=== PATIENT | female | born 1995 | race Caucasian/White ===

== ENCOUNTER 2017-09-26 17:44 | Emergency (ER) | payer BC, OTHER ==
--- NOTE | 2017-09-26 18:58 | ER Document Report ---
ED Medical Screen (RME) - General Chief Complaint: Chest Pain Stated Complaint: CHEST PAIN Time Seen by Provider: 09/26/17 18:49 Notes: RAPID MEDICAL EVALUATION DISCLOSURE I have seen this patient as part of a Rapid Medical Evaluation and, if applicable, placed any initially appropriate orders. The patient will be seen and fully evaluated, including a full history and physical exam, by a provider ( in Main ED or Fast Track) when a room becomes available. 22-year-old female here with complaints of sharp/aching midsternal chest pain radiating up to the left neck ongoing for the past few days. The symptoms are worse with exertion but also particularly so with taking a deep breath in. She also feels short of breath but no nausea vomiting numbness tingling. She has no prior history of CAD but has a family history of grandfather who had heart attack at age 32. Denies hypertension hyperlipidemia diabetes cocaine/tobacco abuse. Denies prior history of DVT PE or family history of same. No recent prolonged immobilization estrogen use cancer. EXAM CTAB RRR No chest wall or neck TTP TRAVEL OUTSIDE OF THE [place] IN LAST 30 DAYS: No - Related Data Allergies/Adverse Reactions: No Known Allergies Allergy (Verified 09/26/17 17:45) Past Medical History - Social History Frequency of alcohol use: Occasional Drug Abuse: None Pulmonary Medical History: Denies: Hx Asthma Neurological Medical History: Denies: Hx Cerebrovascular Accident Renal/ Medical History: Denies: Hx Peritoneal Dialysis GI Medical History: Denies: Hx Gastritis, Hx Gastroesophageal Reflux Disease Skin Medical History: Denies Hx Cellulitis, Denies Hx MRSA - Immunizations Immunizations up to date: Yes Hx Diphtheria, Pertussis, Tetanus Vaccination: Yes Physical Exam - Vital signs Vitals: Temp Pulse Resp BP Pulse Ox 99.0 F 80 18 119/65 100 09/26/17 18:19 09/26/17 18:19 09/26/17 18:19 09/26/17 18:19 09/26/17 18:19 Course - Vital Signs Vital signs: Temp Pulse Resp BP Pulse Ox 99.0 F 80 18 119/65 100 09/26/17 18:19 09/26/17 18:19 09/26/17 18:19 09/26/17 18:19 09/26/17 18:19
[2017-09-26 19:19] LABS: ABSOLUTE BASOPHILS # (AUTO) 0.1 10^3/uL (0.0-0.2); ABSOLUTE EOSINOPHILS # (AUTO) 0.2 10^3/uL (0.0-0.6); ABSOLUTE LYMPHOCYTES (AUTO) 3.5 10^3/uL (0.5-4.7); ABSOLUTE MONOCYTES (AUTO) 0.9 10^3/uL (0.1-1.4); ABSOLUTE NEUT (AUTO) 7.4 10^3/uL (1.7-8.2); BASOPHILS % (AUTO) 0.7 % (0-2); EOSINOPHILS % (AUTO) 1.6 % (0-6); HEMATOCRIT 43.3 % (36.0-47.0); HEMOGLOBIN 14.7 g/dL (12.0-15.5); LYMPHOCYTES % (AUTO) 28.9 % (13-45); MEAN CORPUSCULAR HEMOGLOBIN 29.6 pg (27.0-33.4); MEAN CORPUSCULAR HGB CONC 33.9 g/dL (32.0-36.0); MEAN CORPUSCULAR VOLUME 87 fl (80-97); MONOCYTES % (AUTO) 7.5 % (3-13); PLATELET COUNT 340 10^3/uL (150-450); RED BLOOD COUNT 4.96 10^6/uL (3.72-5.28); RED CELL DISTRIBUTION WIDTH 13.9 % (11.5-14.0); SEGMENTED NEUTROPHILS % (AUTO) 61.3 % (42-78); TOTAL CELLS COUNTED % (AUTO) 100 %; WHITE BLOOD COUNT 12.1 10^3/uL (4.0-10.5)
--- NOTE | 2017-09-26 19:22 | RADIOLOGY REPORT (SQ) ---
EXAM DESCRIPTION: CHEST 2 VIEWS COMPLETED DATE/TIME: 09/26/2017 7:11 pm REASON FOR STUDY: CP SOB COMPARISON: None. EXAM PARAMETERS: NUMBER OF VIEWS: two views TECHNIQUE: Digital Frontal and Lateral radiographic views of the chest acquired. RADIATION DOSE: NA LIMITATIONS: none FINDINGS: LUNGS AND PLEURA: No opacities, masses or pneumothorax. No pleural effusion. MEDIASTINUM AND HILAR STRUCTURES: No masses or contour abnormalities. HEART AND VASCULAR STRUCTURES: Heart normal size. No evidence for failure. BONES: No acute findings. HARDWARE: None in the chest. OTHER: No other significant finding. IMPRESSION: NO ACUTE RADIOGRAPHIC FINDING IN THE CHEST. TECHNICAL DOCUMENTATION: JOB ID: [id number] [id number] 2010 [employer]- All Rights Reserved Reading location - IP/workstation name: [email or web address]
[2017-09-26 19:28] LABS: ALANINE AMINOTRANSFERASE 33 U/L (9-52); ALBUMIN 4.6 g/dL (3.5-5.0); ALKALINE PHOSPHATASE 44 U/L (38-126); ANION GAP 12 (5-19); ASPARTATE AMINO TRANSFERASE 25 U/L (14-36); BILIRUBIN,DIRECT 0.2 mg/dL (0.0-0.4); BILIRUBIN,TOTAL 0.5 mg/dL (0.2-1.3); BLOOD UREA NITROGEN 12 mg/dL (7-20); CALCIUM 10.2 mg/dL (8.4-10.2); CARBON DIOXIDE 29 mmol/L (22-30); CHLORIDE 103 mmol/L (98-107); GLUCOSE 92 mg/dL (75-110); POTASSIUM 4.1 mmol/L (3.6-5.0); SODIUM 143.5 mmol/L (137-145); TOTAL PROTEIN 7.9 g/dL (6.3-8.2)
--- NOTE | 2017-09-26 19:32 | EKG REPORT ---
SEVERITY:- NORMAL ECG - SINUS RHYTHM : Confirmed by: Benedict Hernandez MD 26-Sep-2017 19:31:22
--- NOTE | 2017-09-26 20:42 | ER Document Report ---
ED Cardiac - General Chief Complaint: Chest Pain Stated Complaint: CHEST PAIN Time Seen by Provider: 09/26/17 18:49 Mode of Arrival: Ambulatory Information source: Patient Notes: Patient is an otherwise healthy 22-year-old female who presents with chest pain. Patient reports that the pain started Friday night in her left neck/ throat area and describes as a throbbing pain patient reports that over the last 24 hours and has moved to her upper left chest wall. Patient reports that it is worse with movements and feels sharp when she takes a deep breath however patient denies any shortness of breath. Patient reports that the pain is right at the level of the clavicle. Patient denies any history of smoking, denies any use of control pills and denies any recent travel. TRAVEL OUTSIDE OF THE [place] IN LAST 30 DAYS: No - Related Data Allergies/Adverse Reactions: No Known Allergies Allergy (Verified 09/26/17 17:45) Past Medical History - General Information source: Patient - Social History Smoking Status: Former Smoker Frequency of alcohol use: Occasional Drug Abuse: None Family History: Reviewed & Not Pertinent Patient has suicidal ideation: No Patient has homicidal ideation: No - Medical History Medical History: Negative Pulmonary Medical History: Denies: Hx Asthma Neurological Medical History: Denies: Hx Cerebrovascular Accident Renal/ Medical History: Denies: Hx Peritoneal Dialysis GI Medical History: Denies: Hx Gastritis, Hx Gastroesophageal Reflux Disease Skin Medical History: Denies Hx Cellulitis, Denies Hx MRSA Psychiatric Medical History: Reports: None Surgical Hx: Negative - Immunizations Immunizations up to date: Yes Hx Diphtheria, Pertussis, Tetanus Vaccination: Yes Review of Systems - Review of Systems Constitutional: No symptoms reported EENT: No symptoms reported Cardiovascular: See HPI Respiratory: No symptoms reported Gastrointestinal: No symptoms reported Genitourinary: No symptoms reported Female Genitourinary: No symptoms reported Musculoskeletal: See HPI Skin: No symptoms reported Hematologic/Lymphatic: No symptoms reported Neurological/Psychological: No symptoms reported Physical Exam - Vital signs Vitals: Temp Pulse Resp BP Pulse Ox 99.0 F 80 18 119/65 100 09/26/17 18:19 09/26/17 18:19 09/26/17 18:19 09/26/17 18:19 09/26/17 18:19 - Notes Notes: PHYSICAL EXAMINATION: GENERAL: Well-appearing, well-nourished and in no acute distress. HEAD: Atraumatic, normocephalic. EYES: Pupils equal round and reactive to light, extraocular movements intact, conjunctiva are normal. ENT: Nares patent, oropharynx clear without exudates. Moist mucous membranes. NECK: Normal range of motion, supple without lymphadenopathy LUNGS: Breath sounds clear to auscultation bilaterally and equal. No wheezes rales or rhonchi. HEART: Regular rate and rhythm without murmurs ABDOMEN: Soft, nontender, nondistended abdomen. No guarding, no rebound. No masses appreciated. Female : deferred Musculoskeletal: Normal range of motion, no pitting or edema. No cyanosis. NEUROLOGICAL: Cranial nerves grossly intact. Normal speech, normal gait. Normal sensory, motor exams PSYCH: Normal mood, normal affect. SKIN: Warm, Dry, normal turgor, no rashes or lesions noted. Course - Re-evaluation Re-evalutation: Otherwise healthy 22-year-old female with stable vital signs presenting with complaint of chest pain that initially originated in her left neck. Patient was initially seen by triage provider and initial workup was performed. Patient is chest pain free on my examination. Chest x-ray is negative for any acute findings to include aortic dissection. EKG reveals a sinus rhythm with no ST segment elevations or depressions, normal axis. CBC is unremarkable, chemistry is unremarkable. D-dimer is negative. Troponin is negative. Patient has a heart score of 0, patient is PERC negative. Given patient's low likelihood of ACS due to her age will not keep patient for a deltoid troponin. Patient's vital signs remained stable, patient continues to deny any pain or complaints while in the department. Discussed case with Dr. Tillman who agrees that patient can be discharged home safely. Patient can follow-up outpatient with her primary care provider if her pain continues. 09/27/17 06:48 - Vital Signs Vital signs: Temp Pulse Resp BP Pulse Ox 99.0 F 82 16 115/62 98 09/26/17 18:19 09/26/17 21:26 09/26/17 21:26 09/26/17 21:26 09/26/17 21:26 - Laboratory Result Diagrams: 09/26/17 19:00 09/26/17 19:00 Laboratory results interpreted by me: 09/26/17 19:00 WBC 12.1 H Discharge - Discharge Clinical Impression: Chest pain Qualifiers: Chest pain type: unspecified Qualified Code(s): R07.9 - Chest pain, unspecified Condition: Stable Disposition: HOME, SELF-CARE Additional Instructions: Chest Pain of Unclear Cause The exact cause of your chest pain isn't clear. Fortunately, there is no evidence of a dangerous medical condition. Further testing may be required to find the source of the pain. Most often, we find that this pain is coming from the chest wall -- the muscles or rib joints in the chest. But chest pain can come from the lung and lung lining, the esophagus, the heart valves or heart lining, and even the stomach or gallbladder. Rest. Eat lightly until the pain is gone. We may prescribe medicine for pain and inflammation. You should call the physician immediately if the pain radiates to the shoulder, jaw or arms; if you start to run a fever or develop a cough; or if you develop shortness of breath, or other new or alarming symptoms. Take the medication as prescribed. Please follow up with a primary care physician in the next 3-5 days if your symptoms continue. Return to the ER if your chest pain worsens, is accompanied by shortness of breath, nausea, diaphoresis, or any other symptom that is concerning to you. Prescriptions: Naproxen 500 mg PO TID PRN #30 tablet PRN Reason: For Pain [facility] [[facility]] - Follow up as needed
[2017-09-26 21:32] VITALS: BP 115/62
== END 2017-09-26 21:32 | disposition home or self-care (01) ==
LOC: ER 17:44
DX: R07.9 Chest pain, unspecified (principal); M54.2 Cervicalgia; R07.89 Other chest pain; Z87.891 Personal history of nicotine dependence
CPT/HCPCS: 36415; 71046; 80053; 81025; 84484; 84703; 85025; 85379; 93005; 93010; 99285

== ENCOUNTER 2017-09-28 23:24 | Emergency (ER) | payer BC ==
[2017-09-29] MEDS ORDERED: NORMAL SALINE 1000 ML 1,000 ML IV ONE (01:20)
--- NOTE | 2017-09-29 02:38 | RADIOLOGY REPORT (SQ) ---
EXAM DESCRIPTION: US ABDOMEN LIMITED COMPLETED DATE/TME: 09/29/2017 01:20 CLINICAL HISTORY: ruq pain COMPARISON: 12/14/2011 TECHNIQUE: Real-time sonographic images of the right upper abdomen were obtained using a curved multihertz transducer. FINDINGS: Pancreas: The visualized portions of the pancreas are unremarkable. Vascular: The visualized portions of the aorta and IVC are unremarkable. Liver: The liver has normal contour and echogenicity. Hepatopedal flow in the portal vein confirmed with color and spectral Doppler imaging. The common bile duct measures 0.2 cm. Gallbladder: The gallbladder has a normal appearance. No gallstones identified. No wall thickening or pericholecystic fluid. Right Kidney: The right kidney measures 9.4 cm in length. No hydronephrosis, solid renal mass, or shadowing calculi. IMPRESSION: No sonographic abnormality in the right upper abdomen identified.
[2017-09-29 02:59] LABS: ABSOLUTE BASOPHILS # (AUTO) 0.1 10^3/uL (0.0-0.2); ABSOLUTE EOSINOPHILS # (AUTO) 0.2 10^3/uL (0.0-0.6); ABSOLUTE LYMPHOCYTES (AUTO) 3.2 10^3/uL (0.5-4.7); ABSOLUTE MONOCYTES (AUTO) 1.5 10^3/uL (0.1-1.4); ABSOLUTE NEUT (AUTO) 8.7 10^3/uL (1.7-8.2); BASOPHILS % (AUTO) 0.9 % (0-2); EOSINOPHILS % (AUTO) 1.5 % (0-6); HEMATOCRIT 39.2 % (36.0-47.0); HEMOGLOBIN 13.2 g/dL (12.0-15.5); LYMPHOCYTES % (AUTO) 23.3 % (13-45); MEAN CORPUSCULAR HEMOGLOBIN 29.5 pg (27.0-33.4); MEAN CORPUSCULAR HGB CONC 33.5 g/dL (32.0-36.0); MEAN CORPUSCULAR VOLUME 88 fl (80-97); MONOCYTES % (AUTO) 10.7 % (3-13); PLATELET COUNT 287 10^3/uL (150-450); RED BLOOD COUNT 4.46 10^6/uL (3.72-5.28); RED CELL DISTRIBUTION WIDTH 13.6 % (11.5-14.0); SEGMENTED NEUTROPHILS % (AUTO) 63.6 % (42-78); TOTAL CELLS COUNTED % (AUTO) 100 %; WHITE BLOOD COUNT 13.7 10^3/uL (4.0-10.5)
--- NOTE | 2017-09-29 03:33 | RADIOLOGY REPORT (SQ) ---
EXAM DESCRIPTION: CT CHEST ANGIOGRAPHY WITHOUT THEN WITH IV CONTRAST COMPLETED DATE/TME: 09/29/2017 01:19 CLINICAL HISTORY: cp, sharp, sob COMPARISON: None Available. TECHNIQUE: CTA of the chest obtained following the uncomplicated intravenous administration of 69 mL Isovue-370. 3-D/MIP reformatted images of the chest available for evaluation. DLP: 569 mGycm FINDINGS: Chest: Pulmonary arteries: Contrast bolus is adequate.No filling defects identified in the pulmonary arteries to suggest pulmonary embolus. Thyroid:No abnormalities of the visualized thyroid. Great Vessels:Great vessels have normal anatomic configuration. Thoracic Aorta:No abnormalities of the thoracic aorta identified. Heart:No cardiomegaly, significant pericardial effusion, or coronary artery atherosclerosis Lymph Nodes:No enlarged mediastinal lymph nodes identified. Esophagus:No abnormalities of the esophagus identified. Other:No additional findings. Lungs:No alveolar or interstitial airspace opacities identified. Pleura:No pleural effusion or pneumothorax. Trachea/Airways:No abnormalities of the visualized trachea or airways. Bones:No destructive osseous lesions. Upper Abdomen:Limited images of the upper abdomen demonstrate no definite abnormalities of visualized portions of the gallbladder, pancreas, spleen, adrenal glands, or kidneys. Benign-appearing hepatic cysts. IMPRESSION: 1. No pulmonary embolus identified. This exam was performed according to our departmental dose-optimization program, which includes automated exposure control, adjustment of the mA and/or kV according to patient size and/or use of iterative reconstruction technique.
[2017-09-29 03:36] LABS: ALANINE AMINOTRANSFERASE 25 U/L (9-52); ALBUMIN 3.7 g/dL (3.5-5.0); ALKALINE PHOSPHATASE 52 U/L (38-126); ANION GAP 12 (5-19); ASPARTATE AMINO TRANSFERASE 21 U/L (14-36); BILIRUBIN,DIRECT 0.4 mg/dL (0.0-0.4); BILIRUBIN,TOTAL 0.6 mg/dL (0.2-1.3); BLOOD UREA NITROGEN 10 mg/dL (7-20); CALCIUM 9.9 mg/dL (8.4-10.2); CARBON DIOXIDE 26 mmol/L (22-30); CHLORIDE 108 mmol/L (98-107); CREATINE KINASE 69 U/L (30-135); GLUCOSE 85 mg/dL (75-110); LIPASE 70.9 U/L (23-300); POTASSIUM 4.6 mmol/L (3.6-5.0); TOTAL PROTEIN 6.6 g/dL (6.3-8.2)
[2017-09-29] MEDS ORDERED: OXYCODONE-ACETAMINOPHEN 5-325 MG TABLET PO ONE (03:37)
--- NOTE | 2017-09-29 03:38 | ER Document Report ---
ED General - General Chief Complaint: Chest Wall Pain Stated Complaint: CHEST PAIN Time Seen by Provider: 09/29/17 00:58 Mode of Arrival: Ambulatory Information source: Patient Notes: Patient is a 22-year-old female who returns to the emergency department with continued complaints of midsternal chest pain. Patient reports this pain feels sharp and stabbing, patient denies anything that makes the symptoms worse better. Patient denies any other associated symptoms such as nausea, vomiting, diaphoresis or radiation of the pain. Patient denies any cardiac history. In this department approximately 2-3 days ago and had a normal workup to include negative troponin. TRAVEL OUTSIDE OF THE [place] IN LAST 30 DAYS: No - Related Data Allergies/Adverse Reactions: No Known Allergies Allergy (Verified 09/26/17 17:45) Past Medical History - General Information source: Patient - Social History Smoking Status: Never Smoker Chew tobacco use (# tins/day): No Frequency of alcohol use: None Family History: Reviewed & Not Pertinent Patient has suicidal ideation: No Patient has homicidal ideation: No - Medical History Medical History: Negative Pulmonary Medical History: Denies: Hx Asthma Neurological Medical History: Denies: Hx Cerebrovascular Accident Renal/ Medical History: Denies: Hx Peritoneal Dialysis GI Medical History: Denies: Hx Gastritis, Hx Gastroesophageal Reflux Disease Skin Medical History: Denies Hx Cellulitis, Denies Hx MRSA Surgical Hx: Negative - Immunizations Immunizations up to date: Yes Hx Diphtheria, Pertussis, Tetanus Vaccination: Yes Review of Systems - Review of Systems Constitutional: No symptoms reported EENT: No symptoms reported Cardiovascular: See HPI Respiratory: No symptoms reported Gastrointestinal: No symptoms reported Genitourinary: No symptoms reported Female Genitourinary: No symptoms reported Musculoskeletal: No symptoms reported Skin: No symptoms reported Hematologic/Lymphatic: No symptoms reported Neurological/Psychological: No symptoms reported Physical Exam - Vital signs Vitals: Resp Pulse Ox 13 99 09/29/17 02:39 09/29/17 02:39 - Notes Notes: PHYSICAL EXAMINATION: GENERAL: Well-appearing, well-nourished and in no acute distress. HEAD: Atraumatic, normocephalic. EYES: Pupils equal round and reactive to light, extraocular movements intact, conjunctiva are normal. ENT: Nares patent, oropharynx clear without exudates. Moist mucous membranes. NECK: Normal range of motion, supple without lymphadenopathy LUNGS: Breath sounds clear to auscultation bilaterally and equal. No wheezes rales or rhonchi. HEART: Regular rate and rhythm without murmurs ABDOMEN: Soft, nontender, nondistended abdomen. No guarding, no rebound. No masses appreciated. Female : deferred Musculoskeletal: Normal range of motion, no pitting or edema. No cyanosis. NEUROLOGICAL: Cranial nerves grossly intact. Normal speech, normal gait. Normal sensory, motor exams PSYCH: Normal mood, normal affect. SKIN: Warm, Dry, normal turgor, no rashes or lesions noted. Course - Re-evaluation Re-evalutation: Patient is an otherwise healthy 22-year-old female who returns to the emergency department with persistent chest pain despite a normal workup 2 days ago. Patient describes as sharp stabbing midsternal chest pain with mild shortness of breath. Patient has no other associated symptoms. Patient has no medical history. Workup today includes CBC with a mildly elevated white blood count 13.7 with no shift. Troponin, CK, CK-MB are all unremarkable. Comprehensive metabolic panel is unremarkable. Urinalysis is also unremarkable. Right upper quadrant ultrasound is within normal limits, CTA is also unremarkable with no acute processes and with no evidence of any pulmonary embolism. EKG normal sinus rhythm with a rate of 77, normal axis, no ST segment elevations or depressions. Patient has been stable throughout her emergency department stay. Patient does not appear to be in any acute distress on reevaluation. Patient's vital signs have remained stable without tachycardia or hypoxia. Plan is for patient to follow-up with primary care. - Vital Signs Vital signs: Temp Pulse Resp BP Pulse Ox 18 111/63 100 09/29/17 04:01 09/29/17 04:01 09/29/17 04:01 - Laboratory Result Diagrams: 09/29/17 02:36 09/29/17 02:36 Laboratory results interpreted by me: 09/29/17 09/29/17 02:36 02:36 WBC 13.7 H Absolute Neutrophils 8.7 H Absolute Monocytes 1.5 H Sodium 146.0 H Chloride 108 H Discharge - Discharge Clinical Impression: Chest pain, Shortness of breath Condition: Stable Disposition: HOME, SELF-CARE Additional Instructions: Chest Pain of Unclear Cause The exact cause of your chest pain isn't clear. Fortunately, there is no evidence of a dangerous medical condition. Further testing may be required to find the source of the pain. Most often, we find that this pain is coming from the chest wall -- the muscles or rib joints in the chest. But chest pain can come from the lung and lung lining, the esophagus, the heart valves or heart lining, and even the stomach or gallbladder. Rest. Eat lightly until the pain is gone. We may prescribe medicine for pain and inflammation. You should call the physician immediately if the pain radiates to the shoulder, jaw or arms; if you start to run a fever or develop a cough; or if you develop shortness of breath, or other new or alarming symptoms. Your workup today was completely normal. Please take ibuprofen or acetaminophen as needed for pain. I have given you information for a local primary care physician. Please call and make an appointment so that you can follow-up. Please return to the emergency department if your pain worsens, you have associated nausea, vomiting, you pass out or you develop any other symptoms that are concerning to. Referrals: HALLIE GARNER MD [ACTIVE STAFF] - Follow up as needed
[2017-09-29 03:46] LABS: CREATINE KINASE MB 0.25 ng/mL (<4.55)
[2017-09-29 03:47] LABS: TROPONIN I < 0.012 ng/mL
[2017-09-29 04:02] LABS: APPEARANCE,URINE CLEAR; BILIRUBIN,URINE NEGATIVE (NEGATIVE); COLOR,URINE STRAW; GLUCOSE, URINE NEGATIVE (NEGATIVE); KETONES,URINE NEGATIVE (NEGATIVE); LEUKOCYTE ESTERASE,URINE NEGATIVE (NEGATIVE); NITRITE,URINE NEGATIVE (NEGATIVE); PROTEIN,URINE NEGATIVE (NEGATIVE); URINE SPECIFIC GRAVITY 1.045; UROBILINOGEN,URINE NEGATIVE mg/dL (<2.0)
[2017-09-29] MEDS ORDERED: HYDROCODONE/ACETAMINOPHEN 5-325 MG (6 TAB/ER DISP) PO PRN (04:14)
[2017-09-29 04:25] VITALS: BP 111/63
--- NOTE | 2017-09-29 15:36 | EKG REPORT ---
SEVERITY:- NORMAL ECG - SINUS RHYTHM : Confirmed by: Karina Patterson MD 29-Sep-2017 15:35:17
--- NOTE | 2017-09-29 15:36 | EKG REPORT ---
SEVERITY:- NORMAL ECG - SINUS RHYTHM : Confirmed by: Karina Patterson MD 29-Sep-2017 15:35:13
== END 2017-09-29 04:30 | disposition home or self-care (01) ==
LOC: ER 23:24
DX: R06.02 Shortness of breath (principal); R07.9 Chest pain, unspecified
CPT/HCPCS: 93005; 99285; 96360; 36415; 82553; 82550; 83690; 85025; 81025; 80053; 81001; 84484; 76705; 71275; 93010; J7030

== ENCOUNTER 2018-06-20 18:57 | Emergency (ER) | payer BC ==
[2018-06-20] MEDS ORDERED: ACETAMINOPHEN 325 MG TABLET PO ONE (22:00)
--- NOTE | 2018-06-20 22:02 | ER Document Report ---
HPI - HPI Patient complains to provider of: Right shoulder pain Time Seen by Provider: 06/20/18 21:58 Pain Level: 3 Context: Patient is an otherwise healthy 23-year-old female presents to the emergency department for right shoulder pain for the last week. Patient states she is noticed that it has increased over the last 24 hours which is why she presents to the emergency room. Patient is denying any sort of injury that she can recall. Patient has point tenderness on her right acromion process which also increases upon range of motion of her right shoulder. Patient states she did take Tylenol around 1800 hrs. this afternoon. Past medical history: None Medications: None Allergies: None - CONSTITUTIONAL Constitutional: DENIES: Fever, Chills - REPRODUCTIVE Reproductive: DENIES: : - MUSCULOSKELETAL Musculoskeletal: REPORTS: Extremity pain - R shoulder Past Medical History - General Information source: Patient - Social History Smoking Status: Former Smoker Chew tobacco use (# tins/day): No Frequency of alcohol use: Occasional Drug Abuse: None Family History: Reviewed & Not Pertinent Patient has suicidal ideation: No Patient has homicidal ideation: No Pulmonary Medical History: Denies: Hx Asthma Neurological Medical History: Denies: Hx Cerebrovascular Accident Renal/ Medical History: Denies: Hx Peritoneal Dialysis GI Medical History: Denies: Hx Gastritis, Hx Gastroesophageal Reflux Disease Skin Medical History: Denies Hx Cellulitis, Denies Hx MRSA - Immunizations Immunizations up to date: Yes Hx Diphtheria, Pertussis, Tetanus Vaccination: Yes Vertical Provider Document - CONSTITUTIONAL Agree With Documented VS: Yes Notes: GENERAL: Alert, interacts well. No acute distress. HEAD: Normocephalic, atraumatic. EYES: Pupils equal, round, and reactive to light. Extraocular movements intact. ENT: Oral mucosa moist, tongue midline. NECK: Full range of motion. Supple. Trachea midline. LUNGS: Clear to auscultation bilaterally, no wheezes, rales, or rhonchi. No respiratory distress. HEART: Regular rate and rhythm. No murmur ABDOMEN: Soft, non-tender. Non-distended. Bowel sounds present in all 4 quadrants. EXTREMITIES: Moves all 4 extremities spontaneously. No edema, normal radial and dorsalis pedis pulses bilaterally. No cyanosis. Patient has pain upon palpation right acromion process. Patient also has pain with movement of the right shoulder. Patient can abduct and abduct right shoulder, flex and extend right shoulder although does so with grimace on her face and stated pain. 5 out of 5 strength all 4 extremities. BACK: no cervical, thoracic, lumbar midline tenderness. No saddle anesthesia, normal distal neurovascular exam. NEUROLOGICAL: Alert and oriented x3. Normal speech. cranial nerves II through XII grossly intact PSYCH: Normal affect, normal mood. SKIN: Warm, dry, normal turgor. No rashes or lesions noted. - INFECTION CONTROL TRAVEL OUTSIDE OF THE [place] IN LAST 30 DAYS: No Course - Re-evaluation Re-evalutation: 06/20/18 22:28 Patient's x-ray reveals no signs of fractures. Patient continues to deny the pain is radiating anywhere to include her shoulder blade or her chest. Discussed close follow-up with primary care provider and inevitably orthopedics. Patient voices understanding is stable for discharge. - Vital Signs Vital signs: Temp Pulse Resp BP Pulse Ox 98.7 F 83 16 97/80 L 99 06/20/18 19:10 06/20/18 19:10 06/20/18 19:10 06/20/18 19:10 06/20/18 19:10 Discharge - Discharge Clinical Impression: Shoulder pain, right Qualifiers: Chronicity: acute Qualified Code(s): M25.511 - Pain in right shoulder Condition: Stable Disposition: HOME, SELF-CARE Instructions: Shoulder Injury (OM), Exercise Program for the Shoulder ([facility]) Additional Instructions: As we discussed you have been seen and treated in the emergency department for a potential injury to your right shoulder. Your x-rays reveal no signs of fractures at this time. Please follow-up with your primary care provider in the next 24-48 hours. I have also provided you phone numbers for orthopedics. You may need an MRI of your right shoulder to look at your tendons, ligaments, muscles. Please return to the emergency room should you have any other concerni ng symptoms. Please take [id number] Tylenol and Motrin for generalized pain. Forms: Return to Work Referrals: JCARLOS HUNTER PA [Primary Care Provider] - Follow up as needed
--- NOTE | 2018-06-20 22:26 | RADIOLOGY REPORT (SQ) ---
EXAM DESCRIPTION: XR SHOULDER 2 OR MORE VIEWS COMPLETED DATE/TME: 06/20/2018 22:00 CLINICAL HISTORY: 23 years, Female, pain COMPARISON: None. NUMBER OF VIEWS: 3 TECHNIQUE: 3 view right shoulder LIMITATIONS: None. FINDINGS: Negative for fracture or dislocation. Soft tissues are unremarkable. Joint spaces are preserved IMPRESSION: Negative exam copyright 2010 [employer] All Rights Reserved
[2018-06-20 22:44] VITALS: BP 105/64
== END 2018-06-20 22:43 | disposition home or self-care (01) ==
LOC: ER 18:57
DX: M25.511 Pain in right shoulder (principal); Z87.891 Personal history of nicotine dependence
CPT/HCPCS: 99283

== ENCOUNTER 2018-12-05 11:45 | Outpatient (CLI) | payer BC, MEDICAID ==
--- NOTE | 2018-12-05 12:17 | Admission Physical ---
Datetime Report Generated by CPN: 12/05/2018 12:17 CURRENT ADMISSION Chief Complaint: Vaginal Bleeding Chief Complaint Other: Had one episode of bright, red bleeding with wiping [place] the mall today. No further bleeding after that. Indication for Induction: Not Applicable Admit Impression : , Intrauterine ; No Active Labor; Intact Membranes Admit Plan: Discharge Home ALLERGIES Medication Allergies: No Medication Allergies: No Known Allergies (09/26/2017) Latex: No Latex Allergies OBSTETRICAL HISTORY EDC: 04/01/2019 00:00 : 1 Para: 0 Term: 0 : 0 SAB: 0 IAB: 0 [place] PHYSICAL EXAM General: Normal HEENT: Normal Heart: Normal Lungs: Normal Genitourinary Exam: Normal Extremities: Normal Pelvic Type: Adequate Physical Exam Comments: SSE: cx closed, thick white discharge. No blood visible. SVE: FT/th/high, small amt of blood on glove from exam Vital Signs: Reviewed; Within Normal Limits VAGINAL EXAM Dilatation: 0 Effacement: 0 Station: -3 MEMBRANES Membranes: Intact FETUS A EGA: 23.2 Monitoring: External US FHR- Baseline: 150 Decelerations: None INFORMED CONSENT Signature: with User ID: [email or web address]
[2018-12-05 13:10] LABS: APPEARANCE,URINE CLEAR; BILIRUBIN,URINE NEGATIVE (NEGATIVE); COLOR,URINE STRAW; GLUCOSE, URINE NEGATIVE (NEGATIVE); KETONES,URINE NEGATIVE (NEGATIVE); LEUKOCYTE ESTERASE,URINE NEGATIVE (NEGATIVE); NITRITE,URINE NEGATIVE (NEGATIVE); PROTEIN,URINE NEGATIVE (NEGATIVE); URINE SPECIFIC GRAVITY 1.001; UROBILINOGEN,URINE NEGATIVE mg/dL (<2.0)
[2018-12-05 13:24] LABS: URINE AMPHETAMINES SCREEN NEGATIVE; URINE BARBITURATES SCREEN NEGATIVE; URINE BENZODIAZEPINES SCREEN NEGATIVE; URINE COCAINE SCREEN NEGATIVE; URINE MARIJUANA (THC) SCREEN NEGATIVE; URINE METHADONE SCREEN NEGATIVE; URINE PHENCYCLIDINE SCREEN NEGATIVE
== END 2018-12-05 12:41 | disposition home or self-care (01) ==
LOC: LC 11:45
PROVIDERS: ATTEND Obstetrics & Gynecology
PROC: 4A1HXCZ Monitoring of Products of Conception, Cardiac Rate, External Approach (ICD-10-PCS; principal; 2018-12-05)
DX: O46.92 Antepartum hemorrhage, unspecified, second trimester (principal); Z3A.23 23 weeks gestation of pregnancy
CPT/HCPCS: 80307; 81001

== ENCOUNTER 2019-03-25 07:48 | Outpatient (CLI) | payer BC, MEDICAID ==
[2019-03-25] MEDS ORDERED: TERBUTALINE SULFATE INJ/PF 1 MG/1 ML SDV ONE (08:20)
[2019-03-25] MEDS ORDERED: TERBUTALINE SULFATE INJ/PF 1 MG/1 ML SDV SUBCUT ONE (08:30)
[2019-03-25 08:37] LABS: APPEARANCE,URINE CLOUDY; BILIRUBIN,URINE NEGATIVE (NEGATIVE); COLOR,URINE YELLOW; GLUCOSE, URINE NEGATIVE (NEGATIVE); KETONES,URINE NEGATIVE (NEGATIVE); LEUKOCYTE ESTERASE,URINE LARGE (NEGATIVE); NITRITE,URINE NEGATIVE (NEGATIVE); PROTEIN,URINE NEGATIVE (NEGATIVE); UROBILINOGEN,URINE NEGATIVE mg/dL (<2.0)
[2019-03-25 08:38] LABS: ABSOLUTE BASOPHILS # (AUTO) 0.1 10^3/uL (0.0-0.2); ABSOLUTE EOSINOPHILS # (AUTO) 0.1 10^3/uL (0.0-0.6); ABSOLUTE LYMPHOCYTES (AUTO) 2.7 10^3/uL (0.5-4.7); ABSOLUTE MONOCYTES (AUTO) 0.7 10^3/uL (0.1-1.4); ABSOLUTE NEUT (AUTO) 6.1 10^3/uL (1.7-8.2); BASOPHILS % (AUTO) 0.6 % (0-2); EOSINOPHILS % (AUTO) 0.9 % (0-6); HEMATOCRIT 39.2 % (36.0-47.0); HEMOGLOBIN 13.4 g/dL (12.0-15.5); LYMPHOCYTES % (AUTO) 28.3 % (13-45); MEAN CORPUSCULAR HGB CONC 34.3 g/dL (32.0-36.0); MEAN CORPUSCULAR VOLUME 90 fl (80-97); PLATELET COUNT 216 10^3/uL (150-450); RED BLOOD COUNT 4.34 10^6/uL (3.72-5.28); RED CELL DISTRIBUTION WIDTH 13.6 % (11.5-14.0); SEGMENTED NEUTROPHILS % (AUTO) 63.2 % (42-78); TOTAL CELLS COUNTED % (AUTO) 100 %; WHITE BLOOD COUNT 9.6 10^3/uL (4.0-10.5)
[2019-03-25 08:55] LABS: URINE AMPHETAMINES SCREEN NEGATIVE; URINE BARBITURATES SCREEN NEGATIVE; URINE BENZODIAZEPINES SCREEN NEGATIVE; URINE COCAINE SCREEN NEGATIVE; URINE MARIJUANA (THC) SCREEN NEGATIVE; URINE METHADONE SCREEN NEGATIVE; URINE PHENCYCLIDINE SCREEN NEGATIVE
--- NOTE | 2019-03-25 09:35 | Non Stress Test Report ---
Non Stress Test Datetime Report Generated by CPN: 03/25/2019 09:35 DEMOGRAPHIC EGA NST: 38.0 INDICATION Indication for Study (NST) Other: version VITAL SIGNS Temperature - NST: 98.1 Pulse - NST: 96 RESP - NST: 20 NBPSYS NST: 121 NBPDIA NST: 72 MONITORING Time on Monitor: 03/25/2019 08:00 Time off Monitor: 03/25/2019 09:33 NST Duration: 93 NST INTERVENTIONS NST Interventions: None BABY A: [id number] BABY A Movement : Present Contraction Frequency : occ FHR Baseline : 140 Accelerations : 15X15 Decelerations : None Variability : Moderate 6-25bpm NST Review: Meets Criteria for Reactive NST NST Review and Verified By : Sloan RNC NST Results: Reactive NST REPORT Report Trigger: Send Report
== END 2019-03-25 09:54 | disposition home or self-care (01) ==
LOC: LC 07:48
PROVIDERS: ATTEND Obstetrics & Gynecology
PROC: 4A1HXCZ Monitoring of Products of Conception, Cardiac Rate, External Approach (ICD-10-PCS; principal; 2019-03-25)
DX: Z34.93 Encounter for supervision of normal pregnancy, unspecified, third trimester (principal); Z3A.38 38 weeks gestation of pregnancy
CPT/HCPCS: 59025; 86900; 86901; 36415; 86850; 85025; 81005; 80307; J3105

== ENCOUNTER 2019-04-07 16:32 | Inpatient (IN) | payer BC, MEDICAID ==
[2019-04-07 18:16] LABS: APPEARANCE,URINE CLOUDY; BILIRUBIN,URINE NEGATIVE (NEGATIVE); COLOR,URINE YELLOW; GLUCOSE, URINE NEGATIVE (NEGATIVE); KETONES,URINE NEGATIVE (NEGATIVE); LEUKOCYTE ESTERASE,URINE SMALL (NEGATIVE); NITRITE,URINE NEGATIVE (NEGATIVE); PROTEIN,URINE 30 mg/dL (NEGATIVE); URINE SPECIFIC GRAVITY 1.018; UROBILINOGEN,URINE NEGATIVE mg/dL (<2.0)
[2019-04-07 18:32] LABS: URINE AMPHETAMINES SCREEN NEGATIVE; URINE BARBITURATES SCREEN NEGATIVE; URINE BENZODIAZEPINES SCREEN NEGATIVE; URINE COCAINE SCREEN NEGATIVE; URINE MARIJUANA (THC) SCREEN NEGATIVE; URINE METHADONE SCREEN NEGATIVE; URINE PHENCYCLIDINE SCREEN NEGATIVE
[2019-04-07] MEDS ORDERED: RINGERS SOLUTION,LACTATED 1,000 ML IV PRN (19:48)
[2019-04-07 20:05] LABS: HEMATOCRIT 40.9 % (36.0-47.0); HEMOGLOBIN 13.9 g/dL (12.0-15.5); MEAN CORPUSCULAR HGB CONC 33.9 g/dL (32.0-36.0); MEAN CORPUSCULAR VOLUME 92 fl (80-97); PLATELET COUNT 234 10^3/uL (150-450); RED BLOOD COUNT 4.47 10^6/uL (3.72-5.28); RED CELL DISTRIBUTION WIDTH 13.5 % (11.5-14.0); WHITE BLOOD COUNT 12.9 10^3/uL (4.0-10.5)
[2019-04-07 20:25] LABS: ABSOLUTE LYMPHOCYTES# (MANUAL) 4.3 10^3/uL (0.5-4.7); ABSOLUTE MONOCYTES # (MANUAL) 1.2 10^3/uL (0.1-1.4); BASOPHILS % (MANUAL) 0 % (0-2); EOSINOPHILS % (MANUAL) 0 % (0-6); LYMPHOCYTES % (MANUAL) 33 % (13-45); MONOCYTES % (MANUAL) 9 % (3-13); PLATELET COMMENT ADEQUATE; RBC MORPHOLOGY COMMENT NORMO-CYTIC/CHROMIC; SEGMENTED NEUTROPHILS % (MAN) 58 % (42-78); TOTAL CELLS COUNTED 100
--- NOTE | 2019-04-07 20:43 | Admission Physical ---
Datetime Report Generated by CPN: 04/07/2019 20:43 CURRENT ADMISSION Chief Complaint: Uterine Contractions Chief Complaint Other: Had one episode of bright, red bleeding with [place] the mall [place]. No further bleeding after that. Indication for Induction: Not Applicable Admit Impression : Term, Intrauterine ; Active Labor; Intact Membranes Admit Plan: Admit to Unit; Initiate Labor Protocol ALLERGIES Medication Allergies: No Medication Allergies: No Known Allergies (12/05/2018) Latex: No Latex Allergies OBSTETRICAL HISTORY EDC: 04/08/2019 00:00 : 1 Para: 0 Term: 0 : 0 SAB: 0 IAB: 0 Livin SEE RECORDS Alcohol: No PHYSICAL EXAM General: Normal HEENT: Normal Neurologic: Normal Thyroid: Deferred Heart: Normal Lungs: Normal Breast: Deferred Back: Normal Abdomen: Normal Genitourinary Exam: Normal Extremities: Normal DTRs: Normal Pelvic Type: Adequate Physical Exam Comments: SSE: cx closed, thick white discharge. No blood visible. SVE: FT/th/high, small amt of blood on glove from exam Vital Signs: Reviewed VAGINAL EXAM Dilatation: 5 Effacement: 70 Station: -1 Contraction Comments: q 2-3 MEMBRANES Membranes: Intact FETUS A EGA: 39.6 Monitoring: External US FHR- Baseline: 125 Variability: Moderate 6-25bpm Accelerations: 15X15 Decelerations: None FHR Category: Category I Presentation: Vertex Admit Comment: 24yo at 39+6ega presents for active labor with regular uterine contractions. Ctx began at 1400. GBS negative. ECV done on 03/25 - successful. Vertex again on exam by bedside US today. AROM at 6, thin meconium. Considering epidural. Admit for augmentation if needed. Anticipate INFORMED CONSENT Informed Consent Obtained: Vaginal Delivery; Risks, Benefits and Alternatives Discussed Signature: with User ID: [email or web address]
[2019-04-07] MEDS ORDERED: RINGERS SOLUTION,LACTATED 1,000 ML IV ONE (20:45)
[2019-04-07] MEDS ORDERED: MISOPROSTOL 0.2 MG TABLET ONE (21:24)
[2019-04-07] MEDS ORDERED: OXYTOCIN 10 UNIT/ML VIAL ONE (21:24)
[2019-04-07] MEDS ORDERED: LIDOCAINE 1% INJ-PF (10 MG/ML) 30 ML SDV ONE (21:24)
[2019-04-07] MEDS ORDERED: OXYTOCIN/NORMAL SALINE 20 UNIT/1,000 ML RTUINJ ONE (21:24)
[2019-04-07] MEDS ORDERED: MAG HYDROX/AL HYDROX/SIMETH SUSP 30 ML UDCUP PO ONE (21:27)
[2019-04-07] MEDS ORDERED: MAG HYDROX/AL HYDROX/SIMETH SUSP 30 ML UDCUP ONE (21:29)
[2019-04-07] MEDS ORDERED: OXYTOCIN/NORMAL SALINE 20 UNIT/1,000 ML RTUINJ IV PRN (23:33)
[2019-04-08] MEDS ORDERED: NALBUPHINE HCL INJ 10 MG/1 ML AMPULE ONE (00:36)
[2019-04-08] MEDS ORDERED: NALBUPHINE HCL INJ 10 MG/1 ML AMPULE INJ ONE (00:36)
[2019-04-08] MEDS ORDERED: ACETAMINOPHEN 325 MG TABLET PO PRN (03:18)
[2019-04-08] MEDS ORDERED: MAGNESIUM HYDROXIDE SUSP 30 ML UDCUP PO PRN (03:18)
[2019-04-08] MEDS ORDERED: ZOLPIDEM TARTRATE 5 MG TABLET PO PRN (03:18)
[2019-04-08] MEDS ORDERED: PROMETHAZINE HCL 25 MG SUPP.RECT PR PRN (03:18)
[2019-04-08] MEDS ORDERED: MISOPROSTOL 0.2 MG TABLET PR ONE (03:18)
[2019-04-08] MEDS ORDERED: OXYTOCIN/NORMAL SALINE 20 UNIT/1,000 ML RTUINJ IV PRN (03:18)
[2019-04-08] MEDS ORDERED: DIPHENHYDRAMINE HCL 25 MG CAPSULE PO PRN (03:18)
[2019-04-08] MEDS ORDERED: PROMETHAZINE HCL 25 MG TABLET PO PRN (03:18)
[2019-04-08] MEDS ORDERED: PROMETHAZINE HCL INJ 25 MG/1 ML VIAL IV PRN (03:18)
[2019-04-08] MEDS ORDERED: DIPH/PERTUSS(ACELL)/TETANUS VAC/PF 0.5 ML SYR (>=10YO) IM PRN (03:18)
[2019-04-08] MEDS ORDERED: MEASLES,MUMPS&RUBELLA VACC/PF 0.5 ML VIAL SUBCUT PRN (03:18)
[2019-04-08] MEDS ORDERED: DIBUCAINE 1% OINTMENT 28 GM TP PRN (03:18)
[2019-04-08] MEDS ORDERED: ACETAMINOPHEN WITH CODEINE #3 TABLET PO PRN ×2 (03:18)
[2019-04-08] MEDS ORDERED: BENZOCAINE/MENTHOL AEROSOL SPRAY 56 ML TOP PRN (03:18)
[2019-04-08] MEDS ORDERED: GLYCERIN/WITCH HAZEL LEAF 1 EACH MED..WIPE TP PRN (03:18)
[2019-04-08] MEDS ORDERED: NA PHOS,M-B/NA PHOS,DI-BA (ADULT) 133 ML ENEMA PR PRN (03:18)
[2019-04-08] MEDS ORDERED: PSEUDOEPHEDRINE HCL 30 MG TABLET PO PRN (03:18)
--- NOTE | 2019-04-08 04:37 | Delivery Summary ---
Del Sum A-C Datetime Report Generated by CPN: 04/08/2019 04:36 DELIVERY PERSONNEL DELIVERY PERSONNEL: [id number] Delivery Doctor:: Yusra Valderrama MD Labor and Delivery Nurse:: Chris Inman RNarmy officer Nurse:: Layla Abraham RN Nursery Nurse:: Sandhya Nguyen RN MSN Office Electrician/METAL RIVETING MACHINE OPERATOR: Shereen Chino, [employer]NAL INFORMATION Delivery Anesthesia: None Medications After Delivery: Pitocin Drip 20 Units/1000ml NSS; Cytotec 1000mcg Per Rectum/Vagina Estimated Blood Loss (ml): 100 Delivery QBL: 100 Delivery QBL Comment: 100 Maternal Complications: None Provider Comments: VMI delivered in STONE presentation with nuchal cord reduced at the perineum. Shoulders and body delivered without difficulty. Cord doubly clamped and cut and to maternal abd. Placental delivered intact spontaneously. FF at U. 1st degree perineal laceration repaired in usual fashion. Good hemostasis. Mother and baby stable upon provider leaving the room LABOR SUMMARY EDC: 04/08/2019 00:00 No. Babies in Womb: 1 Attempted: No Labor Anesthesia: IV Sedation LABOR INFORMATION Reason for Induction: Not Applicable Onset of Labor: 04/08/2019 00:28 Complete Dilatation: 04/08/2019 02:11 Cervical Ripening Agents: Cytotec @ 1000 Oxytocin: Augmentation Group B Beta Strep: neg Antibiotics # of Doses: N/A Antibiotics Time of Last Dose: N/A Name of Antibiotic Given: N/A Steroids Given: None Reason Steroids Not Administered: Not Applicable MEMBRANES Membranes Rupture Method: Artificial Rupture of Membranes: 04/07/2019 20:37 Length of Rupture (hr): 6.35 Amniotic Fluid Color: Light Meconium Amniotic Fluid Amount: Small Amniotic Fluid Odor: Normal STAGES OF LABOR Stage 1 hr: 1 Stage 1 min: 43 Stage 2 hr: 0 Stage 2 min: 47 Stage 3 hr: 0 Stage 3 min: 4 Total Time in Labor hr: 2 Total Time in Labor min: 34 VAGINAL DELIVERY Episiotomy: None Laceration #1: Perineal Laceration Extension #1: First Degree Laceration Repair: Yes Laceration Repair Note: 1st degree perineal laceration repaired in usual fashion Sponge Count Correct: Yes Sharps Count Correct: Yes CSECTION DELIVERY Primary Indication: N/A Secondary Indication: N/A CSection Incidence: N/A Labor: N/A Elective: N/A BABY A INFORMATION Infant Delivery Date/Time: 04/08/2019 02:58 Method of Delivery: Vaginal Born in Route : No : N/A Forceps: N/A Vacuum Extraction: N/A Shoulder Dystocia : No PRESENTATION/POSITION BABY A Presentation: Cephalic Cephalic Presentation: Vertex Vertex Position: Left Occipital Anterior Breech Presentation: N/A PLACENTA INFORMATION BABY A Placenta Delivery Time : 04/08/2019 03:02 Placenta Method of Delivery: Spontaneous Placenta Status: Delivered SCORES BABY A Heart Rate 1 min: >100 bpm Resp Effort 1 min: Good Cry Reflex Irritability 1 min: Cough or Sneeze or Pulls Away Muscle Tone 1 min: Active Motion Color 1 min: Blue/Pale Resuscitation Effort 1 min: Tactile Stimulation SCORE 1 MIN: 8 Heart Rate 5 min: >100 bpm Resp Effort 5 min: Good Cry Reflex Irritability 5 min: Cough or Sneeze or Pulls Away Muscle Tone 5 min: Active Motion Color 5 min: Body [place], Extremities Blue Resuscitation Effort 5 min: Tactile Stimulation SCORE 5 MIN: 9 INFANT INFORMATION BABY A Gestational Age at Delivery: 40.0 Gestational Status: Full Term- 39- 40.6 Weeks Infant Outcome : Liveborn Condition : Stable Sex: Male IDENTIFICATION BABY A Verification Date/Time: 04/08/2019 03:07 ID Band Number: [id number] Mother's Name Verified: Yes RN Verifying : E. Raulitolek RN/ C. Abraham RN WEIGHT/LENGTH BABY A Infant Birthweight (gm): 3700 Infant Weight (lb): 8 Infant Weight (oz): 3 Length (in): 21.00 Infant Length (cm): 53.34 CORD INFORMATION BABY A No. Cord Vessels: 3 Nuchal Cord : Around Neck x1, Loose Cord Blood Taken: Yes-For Eval (Mom's Blood Type - or O+) Infant Suction: Mouth ASSESSMENT BABY A Skin to Skin: Yes Skin to Skin Time (min): 60 BABY B INFORMATION : N/A SIGNATURES Signature: with User ID: [email or web address] : I was personally available for consultation and serving as supervising physician for the MLP.
--- NOTE | 2019-04-08 04:37 | Warning Signs in Babies ---
VOD Warning Signs Datetime Report Generated by [facility]: 04/08/2019 04:36 VOD#608 -Warning Signs in Babies: Viewed with Parent(s)/Family (12/05/2018 11:52:Chris Inman RN)
[2019-04-08] MEDS ORDERED: IBUPROFEN 800 MG TABLET ONE (05:28)
[2019-04-08] MEDS ORDERED: FAMOTIDINE 20 MG TABLET ONE (05:28)
[2019-04-08] MEDS: IBUPROFEN 800 MG TABLET PO SCH ×3 (05:31→21:11)
[2019-04-08] MEDS: FERROUS SULFATE 325 MG TABLET PO SCH ×2 (10:47→17:29)
[2019-04-08] MEDS: FAMOTIDINE 20 MG TABLET PO SCH ×2 (10:47→21:11)
[2019-04-08] MEDS: DOCUSATE SODIUM 100 MG CAPSULE PO SCH ×2 (10:47→17:29)
[2019-04-08] MEDS: SENNOSIDES/DOCUSATE 8.6-50 MG 1 EACH TABLET PO SCH (10:47)
[2019-04-08] MEDS: PRENATAL VITAMIN W DHA CAPSULE PO SCH (10:47)
--- NOTE | 2019-04-08 13:50 | PDOC PROGRESS REPORT ---
Subjective-OB Progress Note for:: 04/08/19 Subjective: reports bleeding slowing, pain controlled with current meds. denies needs Physical Exam (OB) Vital Signs: Temp Pulse Resp BP Pulse Ox 98.5 F 85 18 116/62 99 04/08/19 07:47 04/08/19 07:47 04/08/19 07:47 04/08/19 07:47 04/08/19 07:47 Intake & Output 04/07/19 04/08/19 04/09/19 06:59 06:59 06:59 Weight 90.7 kg - Abdomen Description: Soft, Round Hernia Present: No Fundal Description: Firm, Midline Fundal Height: u/u - u/2 - Abdominal Distension: No distension Tenderness: Nontender - Extremities Lower extremities: Juan Luis's sign - neg Calf: Normal, Nontender Objective-Diagnostic Laboratory: 04/07/19 19:20 04/07/19 04/07/19 04/07/19 16:35 19:20 19:20 WBC 12.9 H RBC 4.47 Hgb 13.9 Hct 40.9 MCV 92 MCH 31.0 MCHC 33.9 RDW 13.5 Plt Count 234 Seg Neutrophils % Not Reportable Urine Color YELLOW Urine Appearance CLOUDY Urine pH 7.0 Ur Specific [place] 1.018 Urine Protein 30 H Urine Glucose (UA) NEGATIVE Urine Ketones NEGATIVE Urine Blood NEGATIVE Urine Nitrite NEGATIVE Ur Leukocyte Esterase SMALL H Blood Type O POSITIVE Antibody Screen NEGATIVE Assessment and Plan(PN) - Assessment and Plan (1) Active labor at term Is this a current diagnosis for this admission?: Yes (2) Obstetrical laceration, first degree Is this a current diagnosis for this admission?: Yes (3) Vaginal delivery Is this a current diagnosis for this admission?: Yes - Time Spent with Patient Time with patient: Less than 15 minutes Medications reviewed and adjusted accordingly: Yes - Disposition Anticipated Discharge: Home Within: within 24 hours
[2019-04-09] MEDS: IBUPROFEN 800 MG TABLET PO SCH (06:00)
[2019-04-09 08:12] LABS: HEMATOCRIT 36.1 % (36.0-47.0); HEMOGLOBIN 12.3 g/dL (12.0-15.5); MEAN CORPUSCULAR HEMOGLOBIN 31.2 pg (27.0-33.4); MEAN CORPUSCULAR VOLUME 92 fl (80-97); PLATELET COUNT 184 10^3/uL (150-450); RED BLOOD COUNT 3.93 10^6/uL (3.72-5.28); RED CELL DISTRIBUTION WIDTH 13.6 % (11.5-14.0); WHITE BLOOD COUNT 12.4 10^3/uL (4.0-10.5)
[2019-04-09] MEDS: FERROUS SULFATE 325 MG TABLET PO SCH (09:08)
[2019-04-09] MEDS: PRENATAL VITAMIN W DHA CAPSULE PO SCH (09:08)
[2019-04-09] MEDS: DOCUSATE SODIUM 100 MG CAPSULE PO SCH (09:08)
[2019-04-09] MEDS: FAMOTIDINE 20 MG TABLET PO SCH (09:08)
[2019-04-09] MEDS: SENNOSIDES/DOCUSATE 8.6-50 MG 1 EACH TABLET PO SCH (09:09)
--- NOTE | 2019-04-09 10:46 | PDOC DISCHARGE SUMMARY ---
Impression - Admit/DC Date/PCP Admission Date/Primary Care Provider: 04/07/19 19:28 KYLER STUBBS MD Discharge Date: 04/09/19 - Discharge Diagnosis (1) Active labor at term Is this a current diagnosis for this admission?: Yes (2) Obstetrical laceration, first degree Is this a current diagnosis for this admission?: Yes (3) Vaginal delivery Is this a current diagnosis for this admission?: Yes - Additional Information Resuscitation Status: Full Code Discharge Diet: Regular Discharge Activity: Balance Activity w/Rest, Pelvic Rest Referrals: KYLER STUBBS MD [Primary Care Provider] - (Follow up in 4 weeks for you post evaluation. Call the office and make an appt. ) Prescriptions: Ibuprofen [Motrin 800 mg Tablet] 800 mg PO Q8HP PRN #60 tablet PRN Reason: Home Medications: Vitamin [-U Multiple Vitamin Capsule] 1 tab PO DAILY 12/05/18 Ibuprofen [Motrin 800 mg Tablet] 800 mg PO Q8HP PRN #60 tablet 04/09/19 Results Laboratory Results: WBC 12.4 10^3/uL (4.0-10.5) H 04/09/19 07:46 RBC 3.93 10^6/uL (3.72-5.28) 04/09/19 07:46 Hgb 12.3 g/dL (12.0-15.5) 04/09/19 07:46 Hct 36.1 % (36.0-47.0) 04/09/19 07:46 MCV 92 fl (80-97) 04/09/19 07:46 MCH 31.2 pg (27.0-33.4) 04/09/19 07:46 MCHC 34.0 g/dL (32.0-36.0) 04/09/19 07:46 RDW 13.6 % (11.5-14.0) 04/09/19 07:46 Plt Count 184 10^3/uL (150-450) 04/09/19 07:46 Lymph % (Auto) Not Reportable 04/07/19 19:20 [place] % (Auto) Not Reportable 04/07/19 19:20 Eos % (Auto) Not Reportable 04/07/19 19:20 Baso % (Auto) Not Reportable 04/07/19 19:20 Absolute Neuts (auto) Not Reportable 04/07/19 19:20 Absolute Lymphs (auto) Not Reportable 04/07/19 19:20 Absolute Monos (auto) Not Reportable 04/07/19 19:20 Absolute Eos (auto) Not Reportable 04/07/19 19:20 Absolute Basos (auto) Not Reportable 04/07/19 19:20 Total Counted 100 04/07/19 19:20 Seg Neutrophils % Not Reportable 04/07/19 19:20 Seg Neuts % (Manual) 58 % (42-78) 04/07/19 19:20 Lymphocytes % (Manual) 33 % (13-45) 04/07/19 19:20 Monocytes % (Manual) 9 % (3-13) 04/07/19 19:20 Eosinophils % (Manual) 0 % (0-6) 04/07/19 19:20 Basophils % (Manual) 0 % (0-2) 04/07/19 19:20 Abs Neuts (Manual) 7.5 10^3/uL (1.7-8.2) 04/07/19 19:20 Abs Lymphs (Manual) 4.3 10^3/uL (0.5-4.7) 04/07/19 19:20 Abs Monocytes (Manual) 1.2 10^3/uL (0.1-1.4) 04/07/19 19:20 Absolute Eos (Manual) 0.0 10^3/uL (0.0-0.6) 04/07/19 19:20 Abs Basophils (Manual) 0.0 10^3/uL (0.0-0.2) 04/07/19 19:20 Platelet Comment ADEQUATE 04/07/19 19:20 RBC Morph Comment NORMO-CYTIC/CHROMIC 04/07/19 19:20 Urine Color YELLOW 04/07/19 16:35 Urine Appearance CLOUDY 04/07/19 16:35 Urine pH 7.0 (5.0-9.0) 04/07/19 16:35 Ur Specific [place] 1.018 04/07/19 16:35 Urine Protein 30 mg/dL (NEGATIVE) H 04/07/19 16:35 Urine Glucose (UA) NEGATIVE mg/dL (NEGATIVE) 04/07/19 16:35 Urine Ketones NEGATIVE mg/dL (NEGATIVE) 04/07/19 16:35 Urine Blood NEGATIVE (NEGATIVE) 04/07/19 16:35 Urine Nitrite NEGATIVE (NEGATIVE) 04/07/19 16:35 Urine Bilirubin NEGATIVE (NEGATIVE) 04/07/19 16:35 Urine Urobilinogen NEGATIVE mg/dL (<2.0) 04/07/19 16:35 Ur Leukocyte Esterase SMALL (NEGATIVE) H 04/07/19 16:35 Urine Ascorbic Acid 40 (NEGATIVE) H 04/07/19 16:35 Urine Opiates Screen NEGATIVE 04/07/19 16:35 Urine Methadone Screen NEGATIVE 04/07/19 16:35 Ur Barbiturates Screen NEGATIVE 04/07/19 16:35 Ur Phencyclidine Scrn NEGATIVE 04/07/19 16:35 Ur Amphetamines Screen NEGATIVE 04/07/19 16:35 U Benzodiazepines Scrn NEGATIVE 04/07/19 16:35 Urine Cocaine Screen NEGATIVE 04/07/19 16:35 U Marijuana (THC) Screen NEGATIVE 04/07/19 16:35 RPR NONREACTIVE (NONREACTIVE) 04/07/19 19:20 Blood Type O POSITIVE 04/07/19 19:20 Antibody Screen NEGATIVE 04/07/19 19:20
[2019-04-09 10:51] VITALS: BP 116/66
== END 2019-04-09 13:39 | disposition home or self-care (01) | DRG 807 ==
LOC: LC 16:32 → LR 19:28 → 2S 04-08 05:50
PROVIDERS: ADMIT Student in an Organized Health Care Education/Training Program; ATTEND Student in an Organized Health Care Education/Training Program
PROC: 10E0XZZ Delivery of Products of Conception, External Approach (ICD-10-PCS; principal; 2019-04-08)
PROC: 10907ZC Drainage of Amniotic Fluid, Therapeutic from Products of Conception, Via Natural or Artificial Opening (ICD-10-PCS; 2019-04-08)
PROC: 0HQ9XZZ Repair Perineum Skin, External Approach (ICD-10-PCS; 2019-04-08)
DX: O70.0 First degree perineal laceration during delivery (principal); Z37.0 Single live birth; O69.81X0 Labor and delivery complicated by cord around neck, without compression, not applicable or unspecified; Z3A.40 40 weeks gestation of pregnancy
CPT/HCPCS: 36415; 80307; 81005; 85025; 85027; 86592; 86850; 86900; 86901; J2300; J2590; J3490